=== PATIENT | female | born 1970 | race Caucasian/White ===

== ENCOUNTER 2019-09-19 20:31 | Emergency (ER) | payer MEDICAID ==
[~2019-09-19] VITALS: Ht 162.6 cm; Wt 58.0 kg
[2019-09-19] MEDS ORDERED: LORAZEPAM 2MG/ML CPJ IM STA (21:03)
[2019-09-19 21:45] LABS: BASOPHILS % 0.3 % (0.0-2.0); EOSINOPHILS % 0.3 % (0.0-5.0); HEMATOCRIT. 39.6 % (36.0-48.0); HEMOGLOBIN. 13.3 g/dL (12.0-16.0); LYMPHOCYTES % 21.7 % (20.0-50.0); MEAN CORPUSCULAR HEMOGLOBIN 27.2 pg (28.0-32.0); MEAN CORPUSCULAR VOLUME 81.1 fL (81.0-99.0); MEAN PLATELET VOLUME 8.7 fl (7.4-10.4); MONOCYTES % 8.3 % (2.0-8.0); NEUTROPHILS % 69.4 % (40.0-76.0); PLATELET 264 x1000/uL (130-400); RED BLOOD CELL COUNT 4.88 mill/uL (4.2-5.4); RED CELL DISTRIBUTION WIDTH 15.3 % (11.6-14.6)
[2019-09-19 21:48] LABS: CHLORIDE 108 mEq/L (98-107)
[2019-09-19 21:52] LABS: ETHANOL BLOOD < 10 mg/dL
[2019-09-19] MEDS ORDERED: CEFAZOLIN 1000MG PREMIX 50 ML IV ONE (23:30)
[2019-09-19 23:34] LABS: CLARITY URINE CLEAR (CLEAR); COLOR URINE YELLOW (YELLOW); KETONES URINE 2+ (NEGATIVE); LEUKOCYTE ESTERASE URINE NEGATIVE (NEGATIVE); NITRITE URINE NEGATIVE (NEGATIVE); OCCULT BLOOD URINE NEGATIVE (NEGATIVE); PROTEIN URINE NEGATIVE (NEGATIVE); SPECIFIC GRAVITY URINE 1.012 (1.005-1.030); UROBILINOGEN URINE 0.2 E.U./dL (0.2-1.0)
[2019-09-19 23:51] LABS: CANNABINOID URINE SCREEN NEGATIVE (NEGATIVE); PHENCYCLIDINE URINE SCREEN NEGATIVE (NEGATIVE)
[2019-09-19 23:53] LABS: *AMPHETAMINES SCREEN URINE NEGATIVE (NEGATIVE); *BARBITURATES SCREEN URINE NEGATIVE (NEGATIVE); *COCAINE SCREEN URINE NEGATIVE (NEGATIVE); METHADONE URINE SCREEN NEGATIVE (NEGATIVE); OPIATES URINE SCREEN NEGATIVE (NEGATIVE)
[2019-09-19 23:55] LABS: *BENZODIAZEPINES SCREEN URINE NEGATIVE (NEGATIVE)
[2019-09-20] MEDS ORDERED: KETOROLAC 15MG/ML VIAL IV ONE (00:30)
[2019-09-20] MEDS ORDERED: LORAZEPAM 2MG/ML CPJ IV ONE (00:30)
[2019-09-20 02:22] VITALS: BP 115/61
== END 2019-09-20 02:27 | disposition short-term general hospital (02) ==
LOC: ER 20:31
DX: T23.251A Burn of second degree of right palm, initial encounter (principal); T23.231A Burn of second degree of multiple right fingers (nail), not including thumb, initial encounter; F22 Delusional disorders; I10 Essential (primary) hypertension; Z78.1 Physical restraint status; X76.XXXA Intentional self-harm by smoke, fire and flames, initial encounter; Y93.89 Activity, other specified; Y92.018 Other place in single-family (private) house as the place of occurrence of the external cause
CPT/HCPCS: 36415; 80053; 80305; 80320; 81003; 81025; 85025; 96365; 96375; 99285; J0690; J1885; J2060; G0480

== ENCOUNTER 2022-07-22 14:57 | Emergency (ER) | payer MEDICAID ==
[~2022-07-22] VITALS: Ht 157.5 cm; Wt 76.0 kg
[2022-07-22] MEDS ORDERED: ZIPRASIDONE HCL 20MG CAPSULE PO ONE (16:15)
[2022-07-22] MEDS ORDERED: LORAZEPAM 1MG TABLET PO ONE (16:15)
[2022-07-22 16:33] LABS: BASOPHILS % 0.3 % (0.0-2.0); EOSINOPHILS % 0.2 % (0.0-5.0); HEMATOCRIT. 44.4 % (36.0-48.0); HEMOGLOBIN. 14.8 g/dL (12.0-16.0); LYMPHOCYTES % 12.4 % (20.0-50.0); MEAN CORPUSCULAR HEMOGLOBIN 28.6 pg (28.0-32.0); MEAN CORPUSCULAR VOLUME 85.5 fL (81.0-99.0); MONOCYTES % 4.8 % (2.0-8.0); NEUTROPHILS % 82.3 % (40.0-76.0); PLATELET 249 x1000/uL (130-400); RED BLOOD CELL COUNT 5.19 mill/uL (4.2-5.4); RED CELL DISTRIBUTION WIDTH 14.1 % (11.6-14.6)
[2022-07-22 16:36] LABS: CHLORIDE 110 mEq/L (98-107)
[2022-07-22 16:43] LABS: ETHANOL BLOOD < 10 mg/dL
[2022-07-22] MEDS ORDERED: ZIPRASIDONE MESYLATE 20MG/VIAL IM ONE (17:45)
[2022-07-22] MEDS ORDERED: LORAZEPAM 2MG/ML CPJ IM PRN (17:45)
[2022-07-23] MEDS ORDERED: OLANZAPINE 10 MG/VIAL IM ONE
[2022-07-23 02:08] LABS: CLARITY URINE CLEAR (CLEAR); COLOR URINE YELLOW (YELLOW); KETONES URINE 2+ (NEGATIVE); LEUKOCYTE ESTERASE URINE NEGATIVE (NEGATIVE); NITRITE URINE NEGATIVE (NEGATIVE); OCCULT BLOOD URINE NEGATIVE (NEGATIVE); PH URINE 6.5 (4.5-8.0); PROTEIN URINE TRACE (NEGATIVE); SPECIFIC GRAVITY URINE 1.012 (1.005-1.030); UROBILINOGEN URINE 0.2 E.U./dL (0.2-1.0)
[2022-07-23 02:43] LABS: *AMPHETAMINES SCREEN URINE NEGATIVE (NEGATIVE); *BARBITURATES SCREEN URINE NEGATIVE (NEGATIVE); *BENZODIAZEPINES SCREEN URINE NEGATIVE (NEGATIVE); *COCAINE SCREEN URINE NEGATIVE (NEGATIVE); CANNABINOID URINE SCREEN NEGATIVE (NEGATIVE); METHADONE URINE SCREEN NEGATIVE (NEGATIVE); OPIATES URINE SCREEN NEGATIVE (NEGATIVE); PHENCYCLIDINE URINE SCREEN NEGATIVE (NEGATIVE)
[2022-07-23] MEDS ORDERED: ZIPRASIDONE MESYLATE 20MG/VIAL IM ONE (08:45)
[2022-07-23] MEDS ORDERED: LORAZEPAM 2MG/ML CPJ IV ONE (08:45)
[2022-07-23 09:01] LABS: HCG SCREEN NEGATIVE
[2022-07-23] MEDS: OLANZAPINE 5MG TABLET ODT PO SCH ×2 (11:46→17:00)
[2022-07-24] MEDS ORDERED: ZIPRASIDONE MESYLATE 20MG/VIAL IM NR (00:27)
[2022-07-24] MEDS ORDERED: ZIPRASIDONE MESYLATE 20MG/VIAL IM ONE (00:33)
[2022-07-24] MEDS ORDERED: LISINOPRIL 5MG TABLET PO SCH (06:15)
[2022-07-24] MEDS: LISINOPRIL 10MG TABLET PO SCH (09:00)
[2022-07-24] MEDS: OLANZAPINE 5MG TABLET ODT PO SCH ×2 (09:00→17:00)
[2022-07-24] MEDS ORDERED: AMLODIPINE 5MG TABLET PO ONE (23:15)
[2022-07-24] MEDS ORDERED: LORAZEPAM 2MG/ML CPJ IM ONE (23:45)
[2022-07-25] MEDS ORDERED: HYDRALAZINE 20MG/ML VIAL IV ONE (00:30)
[2022-07-25] MEDS: LISINOPRIL 10MG TABLET PO SCH (09:00)
[2022-07-25] MEDS: OLANZAPINE 5MG TABLET ODT PO SCH ×2 (09:00→17:00)
[2022-07-25] MEDS ORDERED: HYDRALAZINE 20MG/ML VIAL IV PRN (09:30)
[2022-07-25] MEDS ORDERED: CLONIDINE HCL 0.1MG/24HR PATCH TD NR (09:30)
[2022-07-25] MEDS ORDERED: LORAZEPAM 2MG/ML CPJ IM ONE (22:30)
[2022-07-25] MEDS ORDERED: HALOPERIDOL LACTATE 5MG/ML VIAL IM ONE (22:30)
[2022-07-25] MEDS ORDERED: DIPHENHYDRAMINE 50MG/ML VIAL IM ONE (22:30)
[2022-07-26] MEDS: OLANZAPINE 5MG TABLET ODT PO SCH ×2 (09:00→17:00)
[2022-07-26] MEDS: LISINOPRIL 10MG TABLET PO SCH (09:00)
[2022-07-26 16:00] VITALS: BP 140/81
[2022-07-28] MEDS ORDERED: LISINOPRIL 5MG TABLET PO SCH (09:00)
== END 2022-07-26 18:04 ==
LOC: ER 14:57 → UNDOADMIN 07-25 05:36 → MICUSO 07-25 05:36 → UNDODISIN 07-26 17:45
DX: F29 Unspecified psychosis not due to a substance or known physiological condition (principal); R41.82 Altered mental status, unspecified; F20.9 Schizophrenia, unspecified; I10 Essential (primary) hypertension; Z20.822 Contact with and (suspected) exposure to COVID-19; F60.0 Paranoid personality disorder; Z79.899 Other long term (current) drug therapy
CPT/HCPCS: 36415; 80048; 80305; 80307; 80320; 80329; 81001; 84703; 85025; 87426; 96372; 96374; 99285; C9803; J0360; J1200; J1630; J2060; J3486; J3490; G0480